=== PATIENT | female | born 1990 | race Caucasian/White ===

== ENCOUNTER 2022-05-16 01:58 | Emergency (ER) | payer OTHER, SELFPAY ==
[2022-05-16] MEDS ORDERED: Ipratropium/Albuterol 3 ML NEB ONE (02:15)
[2022-05-16 02:33] LABS: #Basophils 0.1 thou/uL (0.0-0.2); #Eosinphils 0.3 thou/uL (0.0-0.7); #Lymphocytes 2.4 thou/uL (1.20-3.40); #Monocytes 0.7 thou/uL (0.11-0.59); #Neutrophils 15.1 thou/uL (1.40-6.50); %Basophils 0.4 % (0.0-1.0); %Eosinophils 1.8 % (0.0-10.0); %Lymphocytes 12.8 % (21.0-51.0); %Monocytes 3.7 % (0.0-10.0); %Neutrophils 81.4 % (42.0-75.0); Hemoglobin 13.8 g/dL (12.0-16.0); Mean Corpuscular HGB CONC 34.9 g/dL (32.0-36.0); Mean Corpuscular Hemoglobin 31.3 pg (27.0-31.0); Mean Corpuscular Volume 89.9 fl (78.0-98.0); Mean Platelet Volume 10.7 fL (7.4-10.4); Platelet Count 226 10x3/uL (130-400); RBC Distribution Width 10.9 % (11.5-14.5); Red Blood Cell (RBC) Count 4.41 mill/uL (4.20-5.40); White Blood Cell (WBC) Count 18.5 10x3/uL (4.8-10.8)
[2022-05-16 02:41] LABS: BHCG - Serum Negative (NEGATIVE); Pregs Control Background? CLEAR/WHITE (CLR/WHITE); Pregs Control Bar Appear? YES (CONTROL BAR)
[2022-05-16 02:47] LABS: Base Excess-Venous -3.4 mmol/L (-2.0 to 3.0); Calcium, Ionized 1.09 mmol/L (1.15-1.33); Chloride 107 mmol/L (98-107); Hemoglobin - Calc 14.4 g/dL (12.0-16.0); Potassium 2.9 mmol/L (3.5-5.1); Sodium 142 mmol/L (138-145); T. Carbon Dioxide 23.2 mmol/L (22.0-28.0); vO2 Saturation-calc 91.5 % (60.0-85.0)
[2022-05-16 02:54] LABS: ALT (SGPT) 19 U/L (8-55); AST (SGOT) 17 U/L (5-34); Albumin 4.2 g/dL (3.5-5.0); Alkaline Phosphatase 61 U/L (40-110); Anion Gap 17 mmol/L (10-20); BUN (Urea Nitrogen) 9 mg/dL (7.0-18.7); Bilirubin, Total 0.3 mg/dL (0.2-1.2); Calc. Creatinine Clearance 0 mL/min (70-130); Calcium 8.7 mg/dL (7.8-10.44); Carbon Dioxide 18 mmol/L (22-29); Chloride 109 mmol/L (98-107); Estimated GFR 108; Globulin 2.4 g/dL (2.4-3.5); Glucose 157 mg/dL (70-105); Magnesium 2.7 mg/dL (1.6-2.6); Protein, Total 6.6 g/dL (6.0-8.3); Sodium 141 mmol/L (136-145)
[2022-05-16] MEDS ORDERED: Potassium Chloride 20 MEQ TAB ONE ×2 (04:32→04:33)
[2022-05-16] MEDS ORDERED: Potassium Chloride 10 MEQ TAB ONE (04:33)
[2022-05-16] MEDS ORDERED: Sodium Chloride 0.9% 500 ML ONE (05:57)
[2022-05-16] MEDS ORDERED: Lactated Ringer's 2,000 ML ONE (05:57)
[2022-05-16] MEDS ORDERED: Ipratropium Bromide 2.5 ml Neb ONE (06:47)
[2022-05-16 07:31] LABS: Lactic Acid 3.3 mmol/L (0.5-2.2)
== END 2022-05-16 08:02 | disposition home or self-care (01) ==
LOC: MADERS 01:58
DX: J45.901 Unspecified asthma with (acute) exacerbation (principal); E87.6 Hypokalemia; E87.20 Acidosis, unspecified; D72.829 Elevated white blood cell count, unspecified; Z79.899 Other long term (current) drug therapy
CPT/HCPCS: 80053; 82330; 82803; 83605; 83735; 84703; 85025; 93005; 94760; 96360; 96361; J7030; J7120; J7611; J7612; J7620